=== PATIENT | male | born 1935 | race Caucasian/White ===

== ENCOUNTER 2016-11-02 11:36 | Inpatient (IN) | payer MEDICARE ==
[~2016-11-02] VITALS: Ht 172.7 cm; Wt 95.3 kg
[2016-11-02] MEDS: CITALOPRAM 20 MG TABLET. PO SCH (09:00)
[~2016-11-02 11:36] MED LIST: CEPH-264 PO; CITA20TA5 PO; LAMO200T3 PO; METF100010 PO; WARF7.5T PO
[2016-11-02] MEDS ORDERED: IV NORMAL SALINE 1000ML BAG 1,000 ML IV ONE (13:30)
[2016-11-02 13:51] LABS: BILIRUBIN,URINE NEGATIVE (NEG); GLUCOSE,URINE NEGATIVE (NEG); NITRITE,URINE NEGATIVE (NEG); PH,URINE 5.5; PROTEIN,URINE 100 mg/dL (NEG-TRACE); UROBILINOGEN,URINE 0.2 mg/dL (0.2 mg/dL)
[2016-11-02 13:52] LABS: BASO # 0.1 x10^3/uL (0.0-0.2); BASO % 1 % (0-3); EOS % 4 % (0-3); HEMATOCRIT 39.6 % (39.0-53.0); HEMOGLOBIN 13.3 g/dL (13.0-17.5); LYMPH # 1.1 x10^3/uL (1.0-4.8); LYMPH % 18 % (24-48); MEAN CORPUSCULAR HEMOGLOBIN 32 pg (25-35); MEAN CORPUSCULAR HGB CONC 34 g/dL (31-37); MEAN CORPUSCULAR VOLUME 96 fL (79-100); MONO % 11 % (0-9); NEUT % 66 % (31-73); PLATELET COUNT 174 x10^3/uL (140-400); RED BLOOD COUNT 4.13 x10^6/uL (4.30-5.70); RED CELL DISTRIBUTION WIDTH 15.8 % (11.5-14.5); WHITE BLOOD COUNT 6.1 x10^3/uL (4.0-11.0)
[2016-11-02 14:00] LABS: BACTERIA,URINE FEW /HPF (0-FEW); SQUAMOUS EPITHELIAL CELL,UR FEW /LPF; WBC,URINE 20-40 /HPF (0-4)
[2016-11-02 14:01] LABS: INR 1.6 (0.8-1.1); PROTHROMBIN TIME PATIENT 18.1 SEC (11.7-14.0)
[2016-11-02 14:02] LABS: CALCIUM 9.9 mg/dL (8.5-10.1); CREATININE 1.3 mg/dL (0.7-1.3); GFR 53.3; POTASSIUM 4.6 mmol/L (3.5-5.1)
[2016-11-02 14:08] LABS: ALBUMIN 3.5 g/dL (3.4-5.0); ALBUMIN/GLOBULIN RATIO 1.1 (1.0-1.7); TOTAL BILIRUBIN 0.7 mg/dL (0.2-1.0); TOTAL PROTEIN 6.8 g/dL (6.4-8.2)
[2016-11-02] MEDS ORDERED: ACETAMINOPHEN 325 MG TABLET. PO PRN (14:45)
[2016-11-02] MEDS ORDERED: DEXTROSE 50% 25 GM / 50ML DISP.SYRIN. IV PRN (14:45)
[2016-11-02] MEDS ORDERED: ONDANSETRON PF 4 MG/2 ML VIAL. IV PRN (14:45)
--- NOTE | 2016-11-02 14:53 | PHYS DOC ---
Past Medical History Past Medical History: CAD, Cancer, Depression, Diabetes-Type I, Diabetes-Type II, High Cholesterol, Heart Disease, Kidney Stone, Stroke Additional Past Medical Histor: retinopathy,BPH, CATARACTS PERIPHERAL VASCULAR DISEASE Past Surgical History: Coronary Bypass Surgery, Tonsillectomy, Other Additional Past Surgical Histo: aortic anuerysm, cardiac ablation, PROSTATE/ BLADDER SX, CARDIAC CATH Alcohol Use: None Drug Use: None Adult General Chief Complaint Chief Complaint: OTHER COMPLAINTS HPI HPI 81-year-old male with multiple medical problems presents with urinary frequency and progressive generalized weakness. Family states he's been unable to perform activities of daily living and family is unable to care for him at home. He was prescribed an antibiotic for a recently diagnosed urinary tract infection which she did not take because he was concerned about this affecting his Coumadin dose. He has not had any fever chills or sweats. No nausea or vomiting. He has had gross hematuria in the past however this has not been a problem over the last few days. [] Review of Systems Review of Systems Constitutional: Denies fever or chills [] Eyes: Denies change in visual acuity, redness, or eye pain [] HENT: Denies nasal congestion or sore throat [] Respiratory: Denies cough or shortness of breath [] Cardiovascular: No additional information not addressed in HPI [] GI: Denies abdominal pain, nausea, vomiting, bloody stools or diarrhea [] : Denies dysuria or hematuria [] Musculoskeletal: Denies back pain or joint pain [] Integument: Denies rash or skin lesions [] Neurologic: Denies headache, focal weakness or sensory changes [] Endocrine: Denies polyuria or polydipsia [] Current Medications Current Medications Current Medications Medications (Trade) Dose Ordered Sig/Carlos Enrique Start Time Stop Time Status Last Admin Dose Admin Acetaminophen (Tylenol) 650 mg PRN Q4HRS PRN 11/02/16 14:45 11/03/16 14:44 UNV Dextrose 12.5 gm PRN Q15MIN PRN 11/02/16 14:45 UNV Insulin Aspart (Novolog) 0-5 UNITS TIDWMEALS 11/02/16 17:00 UNV Levofloxacin/ Dextrose (LEVAQUIN 500mg PREMIX) 100 ml @ 100 mls/hr 1X ONCE 11/02/16 13:30 11/02/16 14:29 DC 11/02/16 13:44 100 MLS/HR Ondansetron HCl 4 mg 4 mg PRN Q8HRS PRN 11/02/16 14:45 11/03/16 14:44 UNV Sodium Chloride (Iv Sodium Chloride 0.9% 1000ml Bag) 1,000 ml @ 125 mls/hr Q8H 11/02/16 14:37 11/03/16 14:36 UNV Allergies Allergies Allergies Coded Allergies Type Severity Reaction Last Updated Verified No Known Drug Allergies 09/22/16 No Physical Exam Physical Exam Constitutional: Well developed, well nourished, no acute distress, non-toxic appearance. [] HENT: Normocephalic, atraumatic, bilateral external ears normal, oropharynx moist, no oral exudates, nose normal. [] Eyes: PERRLA, EOMI, conjunctiva normal, no discharge. [] Neck: Normal range of motion, no tenderness, supple, no stridor. [] Cardiovascular:Heart rate regular rhythm, no murmur [] Lungs & Thorax: Bilateral breath sounds clear to auscultation [] Abdomen: Bowel sounds normal, soft, no tenderness, no masses, no pulsatile masses. [] Skin: Warm, dry, no erythema, no rash. [] Back: No tenderness, no CVA tenderness. [] Extremities: No tenderness, no cyanosis, no clubbing, ROM intact, no edema. [] Neurologic: Alert and oriented X 3, normal motor function, normal sensory function, no focal deficits noted. [] Psychologic: Affect normal, judgement normal, mood normal. [] Current Patient Data Vital Signs Vital Signs Date Time Temp Pulse Resp B/P Pulse Ox O2 Delivery O2 Flow Rate FiO2 11/02/16 13:36 66 20 131/61 92 Room Air 11/02/16 13:20 98.0 98.0 Lab Values Laboratory Tests Test 11/02/16 13:05 11/02/16 13:40 Urine Collection Type Unknown Urine Color Yellow Urine Clarity Clear Urine pH 5.5 Urine Specific [place] 1.025 Urine Protein 100mg/dL (NEG-TRACE) Urine Glucose (UA) Negativemg/dL (NEG) Urine Ketones (Stick) Negativemg/dL (NEG) Urine Blood Negative (NEG) Urine Nitrite Negative (NEG) Urine Bilirubin Negative (NEG) Urine Urobilinogen Dipstick 0.2mg/dL (0.2 mg/dL) Urine Leukocyte Esterase Moderate (NEG) Urine RBC 1-2/HPF (0-2) Urine WBC 20-40/HPF (0-4) Urine Squamous Epithelial Cells Few/LPF Urine Bacteria Few/HPF (0-FEW) Urine Mucus Mod/LPF White Blood Count 6.1x10^3/uL (4.0-11.0) Red Blood Count 4.13x10^6/uL (4.30-5.70) L Hemoglobin 13.3g/dL (13.0-17.5) Hematocrit 39.6% (39.0-53.0) Mean Corpuscular Volume 96fL (79-100) Mean Corpuscular Hemoglobin 32pg (25-35) Mean Corpuscular Hemoglobin Concent 34g/dL (31-37) Red Cell Distribution Width 15.8% (11.5-14.5) H Platelet Count 174x10^3/uL (140-400) Neutrophils (%) (Auto) 66% (31-73) Lymphocytes (%) (Auto) 18% (24-48) L Monocytes (%) (Auto) 11% (0-9) H Eosinophils (%) (Auto) 4% (0-3) H Basophils (%) (Auto) 1% (0-3) Neutrophils # (Auto) 4.0x10^3uL (1.8-7.7) Lymphocytes # (Auto) 1.1x10^3/uL (1.0-4.8) Monocytes # (Auto) 0.7x10^3/uL (0.0-1.1) Eosinophils # (Auto) 0.2x10^3/uL (0.0-0.7) Basophils # (Auto) 0.1x10^3/uL (0.0-0.2) Prothrombin Time 18.1SEC (11.7-14.0) H Prothrombin Time INR 1.6 (0.8-1.1) H Sodium Level 138mmol/L (136-145) Potassium Level 4.6mmol/L (3.5-5.1) Chloride Level 102mmol/L (98-107) Carbon Dioxide Level 24mmol/L (21-32) Anion Gap 12 (6-14) Blood Urea Nitrogen 31mg/dL (8-26) H Creatinine 1.3mg/dL (0.7-1.3) Estimated GFR (Cockcroft-Gault) 53.3 BUN/Creatinine Ratio 24 (6-20) H Glucose Level 230mg/dL (70-99) H Calcium Level 9.9mg/dL (8.5-10.1) Total Bilirubin 0.7mg/dL (0.2-1.0) Aspartate Amino Transferase (AST) 10U/L (15-37) L Alanine Aminotransferase (ALT) 7U/L (16-63) L Alkaline Phosphatase 73U/L (46-116) Total Protein 6.8g/dL (6.4-8.2) Albumin 3.5g/dL (3.4-5.0) Albumin/Globulin Ratio 1.1 (1.0-1.7) Laboratory Tests 11/02/16 13:40 Laboratory Tests 11/02/16 13:40 EKG EKG [] Radiology/Procedures Radiology/Procedures [] Course & Med Decision Making Course & Med Decision Making Pertinent Labs and Imaging studies reviewed. (See chart for details) [ED course: Evaluation reveals an elderly male in no distress. He did have a little suprapubic tenderness on exam. Long discussion with his daughter was clear that she was unable to care for him at home. I spoke with Dr. garcia who agreed to accept the patient for admission.] Dragon Disclaimer Dragon Disclaimer This electronic medical record was generated, in whole or in part, using a voice recognition dictation system. Departure Departure Impression: Primary Impression: UTI (urinary tract infection) Disposition: 09 ADMITTED INPATIENT Admitting Physician: Kristan Garcia Condition: STABLE Referrals: ROSA ELENA MILLARD MD (PCP) Problem Qualifiers Primary Impression: UTI (urinary tract infection) Urinary tract infection type: acute cystitis Hematuria presence: with hematuria Qualified Code: N30.01 - Acute cystitis with hematuria KOLE ANDREWS DO Nov 02, 2016 14:53
[2016-11-02] MEDS: IV NORMAL SALINE 1000ML BAG 1,000 ML IV SCH ×2 (15:01→23:03)
--- NOTE | 2016-11-02 16:52 | ACF ---
Admission Forms Criteria URINARY COMPLICATIONS Clinical Indications for Inpatient Care (Place 'X' for any and all applicable criteria): Ongoing inpatient care may be indicated for urinary complications with ANY ONE of the following: [X]I. Urinary tract infection requiring inpatient care as indicated by ANY ONE of the following(8)(19)(20): [ ]a) Severe symptoms (eg, high fever, severe pain) [ ]b) Vomiting or dehydration requiring ongoing inpatient care [X]c) IV antibiotic needs that cannot be managed at lower level of care [ ]d) Hemodynamic instability [ ]e) Obstruction of collecting system by stone or tumor [ ]II. Urinary retention requiring drainage or surgery (3)(4)(5)(17)(18) [ ]III. Renal failure (Use Renal Failure Criteria for further information.) [ ]IV. Oliguria(30) [ ]V. Post obstructive diuresis requiring close monitoring of urine output and intravenous compensation for excessive fluid losses(33) Extended stay beyond goal length of stay for primary condition may be needed until ALL of the following are present(3)(4)(5)(8): [ ]a) Renal function (creatinine) at baseline, or daily decreases in creatinine consistent with renal function return [ ]b) Voiding adequately or with urinary catheter or percutaneous suprapubic tube and management regimen in place that is performable at lower level of care. [ ]c) Urine output adequate [ ]d) Fever absent or resolving [ ]e) Infection absent or treatable at next level of care The original [employer]) content created by [employer] has been revised. The portions of the content which have been revised are identified through the use of italic text or in bold, and [facility] has neither reviewed nor approved the modified material. All other unmodified content is copyright [email or web address] Please see references footnoted in the original [email or web address] edition 2016 Admission Criteria Met?: Yes NILAM WEEMS Nov 02, 2016 16:52
[2016-11-02] MEDS: INSULIN ASPART 300 UNITS/3 ML INSULN.PEN SQ SCH (17:00)
--- NOTE | 2016-11-02 17:35 | PDOC1 ---
History and Physical Date of Admission Date of Admission DATE: 11/02/16 TIME: 17:33 Identification/Chief Complaint Chief Complaint weakness Source Source: Chart review, Patient History of Present Illness History of Present Illness Mr. Kendall, is 81-year-old male, he reports "just visiting" from [place]. admit with urinary frequency and progressive generalized weakness. He has mult prior berrios, prior tumor removed from bladder 2013, recent berrios removal at [facility] one week ago, now, he presents weak, with increased urinary freq, going about every 20 min, he reports Family states he's been unable to perform activities of daily living and family is unable to care for him at home. PER ER "recently diagnosed urinary tract infection which she did not take because he was concerned about this affecting his Coumadin dose" Past Medical History Cardiovascular: CAD, CHF, HTN Heme/Onc: Cancer Musculoskeletal: low back pain Past Surgical History Past Surgical History: CABG (X2., '87 and '05) Family History Family History: No Significant Social History Smoke: No ALCOHOL: none Current Problem List Problem List Problems Medical Problems: (1) UTI (urinary tract infection) Status: Acute Problems: Current Medications Current Medications Current Medications Sodium Chloride 1,000 ml @ 1,000 mls/hr 1X ONCE IV Last administered on 13:43; Start 11/02/16 at 13:30; Stop 11/02/16 at 14:29; Status DC Levofloxacin/ Dextrose (LEVAQUIN 500mg PREMIX) 100 ml @ 100 mls/hr 1X ONCE IV Last administered on 11/02/16 13:44; Start 11/02/16 at 13:30; Stop 11/02/16 at 14:29; Status DC Ondansetron HCl 4 mg 4 mg PRN Q8HRS PRN IV NAUSEA/VOMITING; Start 11/02/16 at 14:45; Stop 11/03/16 at 14:44 Sodium Chloride (Iv Sodium Chloride 0.9% 1000ml Bag) 1,000 ml @ 125 mls/hr Q8H IV Last administered on 11/02/16 15:01; Start 11/02/16 at 14:37; Stop at 14:36 Acetaminophen (Tylenol) 650 mg PRN Q4HRS PRN PO FEVER; Start 11/02/16 at 14:45 ; Stop 11/03/16 at 14:44 Insulin Aspart (Novolog) 0-5 UNITS TIDWMEALS SQ ; Start 11/02/16 at 17:00 Dextrose 12.5 gm PRN Q15MIN PRN IV SEE COMMENTS; Start 11/02/16 at 14:45 Citalopram Hydrobromide (Celexa) 20 mg DAILY PO ; Start 11/03/16 at 09:00; Status UNV Warfarin Sodium (Coumadin) 7.5 mg DAILY PO ; Start 11/03/16 at 09:00; Status UNV Non-Formulary Medication 200 mg DAILY PO ; Start 11/03/16 at 09:00; Status UNV Non-Formulary Medication 1000 mg 1,000 mg BID PO ; Start 11/02/16 at 21:00; Status UNV Ceftriaxone Sodium/Sodium Chloride (Rocephin/Iv Sodium Chloride 0.9% 50ml) 50 ml @ 100 mls/hr Q24H IV ; Start 11/02/16 at 17:30; Status UNV Active Scripts Active Keflex (Cephalexin) 500 Mg Capsule 1 Cap PO BID Reported Coumadin (Warfarin Sodium) 7.5 Mg Tablet 7.5 Mg PO DAILY Lamictal (Lamotrigine) 200 Mg Tablet 200 Mg PO DAILY Citalopram Hbr (Citalopram Hydrobromide) 20 Mg Tablet 20 Mg PO DAILY Metformin Hcl Er (Metformin Hcl) 1,000 Mg Tab.er.24 1,000 Mg PO BID Allergies Allergies: Coded Allergies: No Known Drug Allergies (Unverified , 09/22/16) ROS General: YES: Appetite, Fatigue, Malaise, No: Chills, Night Sweats, Other PSYCHOLOGICAL ROS: No: Anxiety, Behavioral Disorder, Concentration difficultie , Decreased libido, Depression, Disorientation, Hallucinations, Hostility, Irritablity, Memory difficulties, Mood Swings, Obsessive thoughts, Other, Physical abuse, Sexual abuse, Sleep disturbances, Suicidal ideation Eyes: No Blurry vision, No Decreased vision, No Double vision, No Dry eyes, No Excessive tearing, No Eye Pain, No Itchy Eyes, No Loss of vision, No Other, No Photophobia, No Scotomata, No Uses contacts, No Uses glasses HEENT: No: Epistaxis, Heacaches, Hearing change, Nasal congestion, Nasal discharge, Oral lesions, Other, Sinus pain, Sneezing, Snoring, Sore Throat, Tinnitus, Vertigo, Visual Changes, Vocal changes Hematological and Lymphatic: No: Bleeding Problems, Blood Clots, Blood Transfusions, Brusing, Night Sweats, Other, Pallor, Swollen Lymph Nodes ENDOCRINE: YES: Malaise/lethargy, No: Galactorrhea, Hair Pattern Changes, Hot Flashes, Mood Swings, Other, Palpitations, Polydipsia/polyuria, Skin Changes, Temperature Intolerance, Unexpected Weight Changes Respiratory: No: Cough, Hemoptysis, Orthopnea, Other, Pleuritic Pain, SOB with excertion, Shortness of breath, Sputum Changes, Stridor, Tachypnea, Wheezing Cardiovascular: No Chest Pain, No Edema, No Lt Headedness, No Orthopnea, No Other, No Palpitations, No Paroxysmal Noc. Dyspnea Gastrointestinal: No Abdominal Pain, No Constipation, No Diarrhea, No Hematochezia, No Melena, No Nausea, No Other, No Vomiting Genitourinary: YES Frequency, YES Urgency, No , No , No , No , No , No , No , No Discharge, No Flank Pain, No Hematuria , No Incontinence, No Other, No Pain, No Retention Musculoskeletal: Yes Joint Pain, Yes Joint Stiffness, No Gait Disturbance, No Joint Swelling, No Muscle Pain, No Muscular Weakness , No Other, No Pain In:, No Swelling In: Neurological: Yes Gait Disturbance, No Behavorial Changes, No Bowel/Bladder ControlChng, No Confusion, No Dizziness, No Headaches, No Impaired Coord/balance, No Memory Loss, No Numbness/ Tingling, No Other, No Seizures, No Speech Problems, No Tremors, No Visual Changes, No Weakness Skin: Yes Dry Skin, No Acne, No Eczema, No Hair Changes, No Lumps, No Mole Changes, No Mottling, No Nail Changes, No Other, No Pruritus, No Rash, No Skin Lesion Changes Physical Exam General: Alert, Oriented X3 HEENT: Atraumatic, PERRLA Lungs: Normal air movement Heart: no murmurs Abdomen: Normal bowel sounds Extremities: No clubbing, No cyanosis Skin: No rashes, No breakdown Neuro: Normal gait, Normal speech, Normal tone, Sensation intact Psych/Mental Status: Mood NL Vitals Vitals Vital Signs Date Time Temp Pulse Resp B/P Pulse Ox O2 Delivery O2 Flow Rate FiO2 11/02/16 16:36 75 20 132/87 92 Room Air 11/02/16 13:20 98.0 98.0 Labs Labs Laboratory Tests Test 11/02/16 13:05 11/02/16 13:40 Urine Collection Type Unknown Urine Color Yellow Urine Clarity Clear Urine pH 5.5 Urine Specific [place] 1.025 Urine Protein 100mg/dL (NEG-TRACE) Urine Glucose (UA) Negativemg/dL (NEG) Urine Ketones (Stick) Negativemg/dL (NEG) Urine Blood Negative (NEG) Urine Nitrite Negative (NEG) Urine Bilirubin Negative (NEG) Urine Urobilinogen Dipstick 0.2mg/dL (0.2 mg/dL) Urine Leukocyte Esterase Moderate (NEG) Urine RBC 1-2/HPF (0-2) Urine WBC 20-40/HPF (0-4) Urine Squamous Epithelial Cells Few/LPF Urine Bacteria Few/HPF (0-FEW) Urine Mucus Mod/LPF White Blood Count 6.1x10^3/uL (4.0-11.0) Red Blood Count 4.13x10^6/uL (4.30-5.70) Hemoglobin 13.3g/dL (13.0-17.5) Hematocrit 39.6% (39.0-53.0) Mean Corpuscular Volume 96fL (79-100) Mean Corpuscular Hemoglobin 32pg (25-35) Mean Corpuscular Hemoglobin Concent 34g/dL (31-37) Red Cell Distribution Width 15.8% (11.5-14.5) Platelet Count 174x10^3/uL (140-400) Neutrophils (%) (Auto) 66% (31-73) Lymphocytes (%) (Auto) 18% (24-48) Monocytes (%) (Auto) 11% (0-9) Eosinophils (%) (Auto) 4% (0-3) Basophils (%) (Auto) 1% (0-3) Neutrophils # (Auto) 4.0x10^3uL (1.8-7.7) Lymphocytes # (Auto) 1.1x10^3/uL (1.0-4.8) Monocytes # (Auto) 0.7x10^3/uL (0.0-1.1) Eosinophils # (Auto) 0.2x10^3/uL (0.0-0.7) Basophils # (Auto) 0.1x10^3/uL (0.0-0.2) Prothrombin Time 18.1SEC (11.7-14.0) Prothromb Time International Ratio 1.6 (0.8-1.1) Sodium Level 138mmol/L (136-145) Potassium Level 4.6mmol/L (3.5-5.1) Chloride Level 102mmol/L (98-107) Carbon Dioxide Level 24mmol/L (21-32) Anion Gap 12 (6-14) Blood Urea Nitrogen 31mg/dL (8-26) Creatinine 1.3mg/dL (0.7-1.3) Estimated GFR (Cockcroft-Gault) 53.3 BUN/Creatinine Ratio 24 (6-20) Glucose Level 230mg/dL (70-99) Calcium Level 9.9mg/dL (8.5-10.1) Total Bilirubin 0.7mg/dL (0.2-1.0) Aspartate Amino Transf (AST/SGOT) 10U/L (15-37) Alanine Aminotransferase (ALT/SGPT) 7U/L (16-63) Alkaline Phosphatase 73U/L (46-116) Total Protein 6.8g/dL (6.4-8.2) Albumin 3.5g/dL (3.4-5.0) Albumin/Globulin Ratio 1.1 (1.0-1.7) Laboratory Tests Test 11/02/16 13:05 11/02/16 13:40 Urine Collection Type Unknown Urine Color Yellow Urine Clarity Clear Urine pH 5.5 Urine Specific [place] 1.025 Urine Protein 100mg/dL (NEG-TRACE) Urine Glucose (UA) Negativemg/dL (NEG) Urine Ketones (Stick) Negativemg/dL (NEG) Urine Blood Negative (NEG) Urine Nitrite Negative (NEG) Urine Bilirubin Negative (NEG) Urine Urobilinogen Dipstick 0.2mg/dL (0.2 mg/dL) Urine Leukocyte Esterase Moderate (NEG) Urine RBC 1-2/HPF (0-2) Urine WBC 20-40/HPF (0-4) Urine Squamous Epithelial Cells Few/LPF Urine Bacteria Few/HPF (0-FEW) Urine Mucus Mod/LPF White Blood Count 6.1x10^3/uL (4.0-11.0) Red Blood Count 4.13x10^6/uL (4.30-5.70) Hemoglobin 13.3g/dL (13.0-17.5) Hematocrit 39.6% (39.0-53.0) Mean Corpuscular Volume 96fL (79-100) Mean Corpuscular Hemoglobin 32pg (25-35) Mean Corpuscular Hemoglobin Concent 34g/dL (31-37) Red Cell Distribution Width 15.8% (11.5-14.5) Platelet Count 174x10^3/uL (140-400) Neutrophils (%) (Auto) 66% (31-73) Lymphocytes (%) (Auto) 18% (24-48) Monocytes (%) (Auto) 11% (0-9) Eosinophils (%) (Auto) 4% (0-3) Basophils (%) (Auto) 1% (0-3) Neutrophils # (Auto) 4.0x10^3uL (1.8-7.7) Lymphocytes # (Auto) 1.1x10^3/uL (1.0-4.8) Monocytes # (Auto) 0.7x10^3/uL (0.0-1.1) Eosinophils # (Auto) 0.2x10^3/uL (0.0-0.7) Basophils # (Auto) 0.1x10^3/uL (0.0-0.2) Prothrombin Time 18.1SEC (11.7-14.0) Prothromb Time International Ratio 1.6 (0.8-1.1) Sodium Level 138mmol/L (136-145) Potassium Level 4.6mmol/L (3.5-5.1) Chloride Level 102mmol/L (98-107) Carbon Dioxide Level 24mmol/L (21-32) Anion Gap 12 (6-14) Blood Urea Nitrogen 31mg/dL (8-26) Creatinine 1.3mg/dL (0.7-1.3) Estimated GFR (Cockcroft-Gault) 53.3 BUN/Creatinine Ratio 24 (6-20) Glucose Level 230mg/dL (70-99) Calcium Level 9.9mg/dL (8.5-10.1) Total Bilirubin 0.7mg/dL (0.2-1.0) Aspartate Amino Transf (AST/SGOT) 10U/L (15-37) Alanine Aminotransferase (ALT/SGPT) 7U/L (16-63) Alkaline Phosphatase 73U/L (46-116) Total Protein 6.8g/dL (6.4-8.2) Albumin 3.5g/dL (3.4-5.0) Albumin/Globulin Ratio 1.1 (1.0-1.7) VTE Prophylaxis Ordered VTE Prophylaxis Devices: No VTE Pharmacological Prophylaxi: Yes Assessment/Plan Assessment/Plan UTI, complicated sepsis recent berrios prior bladder surgery, tumor removal CAD, s/p CABG x2 afib, coumadin, admit, ID consult levaquin given in ER, start rocephin weakness and debility, PT and OT, plan [facility] NINA SEVERINO MD Nov 02, 2016 17:35
[2016-11-02 18:10] VITALS: BP 132/87
[2016-11-02] MEDS: CEFTRIAXONE SODIUM 1 GM in IV NORMAL SALINE 50ML 50 ML IV SCH (18:46)
[2016-11-02] MEDS: lamoTRIgine 100 MG TABLET. PO SCH (18:47)
[2016-11-02] MEDS: METFORMIN 1,000 MG TABLET PO SCH (18:47)
[2016-11-02 19:07] VITALS: BP 144/76
[2016-11-02] MEDS: WARFARIN 7.5 MG TABLET. PO SCH (20:21)
[2016-11-02] MEDS: TAMSULOSIN 0.4 MG CAP.ER.24H. PO SCH (23:00)
[2016-11-02] MEDS: ENOXAPARIN 40 MG/0.4 ML DISP.SYRIN. SQ SCH (23:04)
[2016-11-02 23:22] VITALS: BP 138/66
[2016-11-03 03:15] VITALS: BP 140/72
[2016-11-03 04:21] LABS: BASO % 0 % (0-3); EOS % 5 % (0-3); HEMATOCRIT 37.9 % (39.0-53.0); HEMOGLOBIN 12.6 g/dL (13.0-17.5); LYMPH # 1.2 x10^3/uL (1.0-4.8); LYMPH % 23 % (24-48); MEAN CORPUSCULAR HEMOGLOBIN 32 pg (25-35); MEAN CORPUSCULAR HGB CONC 33 g/dL (31-37); MEAN CORPUSCULAR VOLUME 96 fL (79-100); MONO % 11 % (0-9); NEUT % 62 % (31-73); PLATELET COUNT 153 x10^3/uL (140-400); RED BLOOD COUNT 3.96 x10^6/uL (4.30-5.70); RED CELL DISTRIBUTION WIDTH 15.8 % (11.5-14.5); WHITE BLOOD COUNT 5.3 x10^3/uL (4.0-11.0)
[2016-11-03 04:35] LABS: CALCIUM 8.8 mg/dL (8.5-10.1); CREATININE 1.1 mg/dL (0.7-1.3); GFR 64.6; POTASSIUM 3.9 mmol/L (3.5-5.1)
[2016-11-03 04:44] LABS: INR 1.6 (0.8-1.1); PROTHROMBIN TIME PATIENT 18.1 SEC (11.7-14.0)
[2016-11-03 07:00] VITALS: BP 122/60
[2016-11-03] MEDS: INSULIN ASPART 300 UNITS/3 ML INSULN.PEN SQ SCH ×3 (07:53→17:23)
[2016-11-03] MEDS: CITALOPRAM 20 MG TABLET. PO SCH (08:10)
[2016-11-03] MEDS: METFORMIN 1,000 MG TABLET PO SCH ×2 (08:10→16:14)
[2016-11-03] MEDS: IV NORMAL SALINE 1000ML BAG 1,000 ML IV SCH (08:10)
[2016-11-03] MEDS: lamoTRIgine 100 MG TABLET. PO SCH (08:11)
--- NOTE | 2016-11-03 11:21 | PDOC ---
Infectious Disease Note Vital Sign Vital Signs Vital Signs Date Time Temp Pulse Resp B/P Pulse Ox O2 Delivery O2 Flow Rate FiO2 11/03/16 08:00 Room Air 11/03/16 07:00 98.1 72 20 122/60 94 98.1 Labs Lab Laboratory Tests Test 11/02/16 13:05 11/02/16 13:40 11/02/16 18:31 11/03/16 04:00 Urine Collection Type Unknown Urine Color Yellow Urine Clarity Clear Urine pH 5.5 Urine Specific [place] 1.025 Urine Protein 100mg/dL (NEG-TRACE) Urine Glucose (UA) Negativemg/dL (NEG) Urine Ketones (Stick) Negativemg/dL (NEG) Urine Blood Negative (NEG) Urine Nitrite Negative (NEG) Urine Bilirubin Negative (NEG) Urine Urobilinogen Dipstick 0.2mg/dL (0.2 mg/dL) Urine Leukocyte Esterase Moderate (NEG) Urine RBC 1-2/HPF (0-2) Urine WBC 20-40/HPF (0-4) Urine Squamous Epithelial Cells Few/LPF Urine Bacteria Few/HPF (0-FEW) Urine Mucus Mod/LPF White Blood Count 6.1x10^3/uL (4.0-11.0) 5.3x10^3/uL (4.0-11.0) Red Blood Count 4.13x10^6/uL (4.30-5.70) 3.96x10^6/uL (4.30-5.70) Hemoglobin 13.3g/dL (13.0-17.5) 12.6g/dL (13.0-17.5) Hematocrit 39.6% (39.0-53.0) 37.9% (39.0-53.0) Mean Corpuscular Volume 96fL (79-100) 96fL (79-100) Mean Corpuscular Hemoglobin 32pg (25-35) 32pg (25-35) Mean Corpuscular Hemoglobin Concent 34g/dL (31-37) 33g/dL (31-37) Red Cell Distribution Width 15.8% (11.5-14.5) 15.8% (11.5-14.5) Platelet Count 174x10^3/uL (140-400) 153x10^3/uL (140-400) Neutrophils (%) (Auto) 66% (31-73) 62% (31-73) Lymphocytes (%) (Auto) 18% (24-48) 23% (24-48) Monocytes (%) (Auto) 11% (0-9) 11% (0-9) Eosinophils (%) (Auto) 4% (0-3) 5% (0-3) Basophils (%) (Auto) 1% (0-3) 0% (0-3) Neutrophils # (Auto) 4.0x10^3uL (1.8-7.7) 3.3x10^3uL (1.8-7.7) Lymphocytes # (Auto) 1.1x10^3/uL (1.0-4.8) 1.2x10^3/uL (1.0-4.8) Monocytes # (Auto) 0.7x10^3/uL (0.0-1.1) 0.6x10^3/uL (0.0-1.1) Eosinophils # (Auto) 0.2x10^3/uL (0.0-0.7) 0.2x10^3/uL (0.0-0.7) Basophils # (Auto) 0.1x10^3/uL (0.0-0.2) 0.0x10^3/uL (0.0-0.2) Prothrombin Time 18.1SEC (11.7-14.0) 18.1SEC (11.7-14.0) Prothromb Time International Ratio 1.6 (0.8-1.1) 1.6 (0.8-1.1) Sodium Level 138mmol/L (136-145) 139mmol/L (136-145) Potassium Level 4.6mmol/L (3.5-5.1) 3.9mmol/L (3.5-5.1) Chloride Level 102mmol/L (98-107) 106mmol/L (98-107) Carbon Dioxide Level 24mmol/L (21-32) 26mmol/L (21-32) Anion Gap 12 (6-14) 7 (6-14) Blood Urea Nitrogen 31mg/dL (8-26) 23mg/dL (8-26) Creatinine 1.3mg/dL (0.7-1.3) 1.1mg/dL (0.7-1.3) Estimated GFR (Cockcroft-Gault) 53.3 64.6 BUN/Creatinine Ratio 24 (6-20) Glucose Level 230mg/dL (70-99) 151mg/dL (70-99) Calcium Level 9.9mg/dL (8.5-10.1) 8.8mg/dL (8.5-10.1) Total Bilirubin 0.7mg/dL (0.2-1.0) Aspartate Amino Transf (AST/SGOT) 10U/L (15-37) Alanine Aminotransferase (ALT/SGPT) 7U/L (16-63) Alkaline Phosphatase 73U/L (46-116) Total Protein 6.8g/dL (6.4-8.2) Albumin 3.5g/dL (3.4-5.0) Albumin/Globulin Ratio 1.1 (1.0-1.7) Glucose (Fingerstick) 172mg/dL (70-99) Test 11/03/16 07:19 11/03/16 10:58 Glucose (Fingerstick) 148mg/dL (70-99) 187mg/dL (70-99) Objective Assessment UTI CAD H/o bladder ca h/o prolonged cath Plan Plan of Care rocephine check post void residual COREY CUMMINGS MD Nov 03, 2016 11:21
[2016-11-03 11:28] VITALS: BP 124/61
--- NOTE | 2016-11-03 15:24 | PDOC ---
PROGRESS NOTES Chief Complaint Chief Complaint UTI, complicatedm - recent berrios sepsis prior bladder surgery, tumor removal CAD, s/p CABG x2 afib, coumadin, weakness and debility, PT and OT, plan SNU History of Present Illness History of Present Illness cont rocephin Vitals Vitals Vital Signs Date Time Temp Pulse Resp B/P Pulse Ox O2 Delivery O2 Flow Rate FiO2 11/03/16 11:28 97.9 70 20 124/61 95 Room Air 97.9 Physical Exam General: Alert, Oriented X3 Heart: Regular rate, No murmurs Lungs: Clear Abdomen: Normal bowel sounds Extremities: No clubbing, No cyanosis Skin: No rashes, No breakdown Labs LABS Laboratory Tests Test 11/02/16 18:31 11/03/16 04:00 11/03/16 07:19 11/03/16 10:58 Glucose (Fingerstick) 172mg/dL (70-99) 148mg/dL (70-99) 187mg/dL (70-99) White Blood Count 5.3x10^3/uL (4.0-11.0) Red Blood Count 3.96x10^6/uL (4.30-5.70) Hemoglobin 12.6g/dL (13.0-17.5) Hematocrit 37.9% (39.0-53.0) Mean Corpuscular Volume 96fL (79-100) Mean Corpuscular Hemoglobin 32pg (25-35) Mean Corpuscular Hemoglobin Concent 33g/dL (31-37) Red Cell Distribution Width 15.8% (11.5-14.5) Platelet Count 153x10^3/uL (140-400) Neutrophils (%) (Auto) 62% (31-73) Lymphocytes (%) (Auto) 23% (24-48) Monocytes (%) (Auto) 11% (0-9) Eosinophils (%) (Auto) 5% (0-3) Basophils (%) (Auto) 0% (0-3) Neutrophils # (Auto) 3.3x10^3uL (1.8-7.7) Lymphocytes # (Auto) 1.2x10^3/uL (1.0-4.8) Monocytes # (Auto) 0.6x10^3/uL (0.0-1.1) Eosinophils # (Auto) 0.2x10^3/uL (0.0-0.7) Basophils # (Auto) 0.0x10^3/uL (0.0-0.2) Prothrombin Time 18.1SEC (11.7-14.0) Prothromb Time International Ratio 1.6 (0.8-1.1) Sodium Level 139mmol/L (136-145) Potassium Level 3.9mmol/L (3.5-5.1) Chloride Level 106mmol/L (98-107) Carbon Dioxide Level 26mmol/L (21-32) Anion Gap 7 (6-14) Blood Urea Nitrogen 23mg/dL (8-26) Creatinine 1.1mg/dL (0.7-1.3) Estimated GFR (Cockcroft-Gault) 64.6 Glucose Level 151mg/dL (70-99) Calcium Level 8.8mg/dL (8.5-10.1) Review of Systems Review of Systems no n.v.d Assessment and Plan Assessmemt and Plan Problems Medical Problems: (1) UTI (urinary tract infection) Status: Acute Problems: Comment Review of Relevant I have reviewed the following items jatin (where applicable) has been applied. Labs Laboratory Tests Test 11/02/16 13:05 11/02/16 13:40 11/02/16 18:31 11/03/16 04:00 Urine Collection Type Unknown Urine Color Yellow Urine Clarity Clear Urine pH 5.5 Urine Specific [place] 1.025 Urine Protein 100mg/dL (NEG-TRACE) Urine Glucose (UA) Negativemg/dL (NEG) Urine Ketones (Stick) Negativemg/dL (NEG) Urine Blood Negative (NEG) Urine Nitrite Negative (NEG) Urine Bilirubin Negative (NEG) Urine Urobilinogen Dipstick 0.2mg/dL (0.2 mg/dL) Urine Leukocyte Esterase Moderate (NEG) Urine RBC 1-2/HPF (0-2) Urine WBC 20-40/HPF (0-4) Urine Squamous Epithelial Cells Few/LPF Urine Bacteria Few/HPF (0-FEW) Urine Mucus Mod/LPF White Blood Count 6.1x10^3/uL (4.0-11.0) 5.3x10^3/uL (4.0-11.0) Red Blood Count 4.13x10^6/uL (4.30-5.70) 3.96x10^6/uL (4.30-5.70) Hemoglobin 13.3g/dL (13.0-17.5) 12.6g/dL (13.0-17.5) Hematocrit 39.6% (39.0-53.0) 37.9% (39.0-53.0) Mean Corpuscular Volume 96fL (79-100) 96fL (79-100) Mean Corpuscular Hemoglobin 32pg (25-35) 32pg (25-35) Mean Corpuscular Hemoglobin Concent 34g/dL (31-37) 33g/dL (31-37) Red Cell Distribution Width 15.8% (11.5-14.5) 15.8% (11.5-14.5) Platelet Count 174x10^3/uL (140-400) 153x10^3/uL (140-400) Neutrophils (%) (Auto) 66% (31-73) 62% (31-73) Lymphocytes (%) (Auto) 18% (24-48) 23% (24-48) Monocytes (%) (Auto) 11% (0-9) 11% (0-9) Eosinophils (%) (Auto) 4% (0-3) 5% (0-3) Basophils (%) (Auto) 1% (0-3) 0% (0-3) Neutrophils # (Auto) 4.0x10^3uL (1.8-7.7) 3.3x10^3uL (1.8-7.7) Lymphocytes # (Auto) 1.1x10^3/uL (1.0-4.8) 1.2x10^3/uL (1.0-4.8) Monocytes # (Auto) 0.7x10^3/uL (0.0-1.1) 0.6x10^3/uL (0.0-1.1) Eosinophils # (Auto) 0.2x10^3/uL (0.0-0.7) 0.2x10^3/uL (0.0-0.7) Basophils # (Auto) 0.1x10^3/uL (0.0-0.2) 0.0x10^3/uL (0.0-0.2) Prothrombin Time 18.1SEC (11.7-14.0) 18.1SEC (11.7-14.0) Prothromb Time International Ratio 1.6 (0.8-1.1) 1.6 (0.8-1.1) Sodium Level 138mmol/L (136-145) 139mmol/L (136-145) Potassium Level 4.6mmol/L (3.5-5.1) 3.9mmol/L (3.5-5.1) Chloride Level 102mmol/L (98-107) 106mmol/L (98-107) Carbon Dioxide Level 24mmol/L (21-32) 26mmol/L (21-32) Anion Gap 12 (6-14) 7 (6-14) Blood Urea Nitrogen 31mg/dL (8-26) 23mg/dL (8-26) Creatinine 1.3mg/dL (0.7-1.3) 1.1mg/dL (0.7-1.3) Estimated GFR (Cockcroft-Gault) 53.3 64.6 BUN/Creatinine Ratio 24 (6-20) Glucose Level 230mg/dL (70-99) 151mg/dL (70-99) Calcium Level 9.9mg/dL (8.5-10.1) 8.8mg/dL (8.5-10.1) Total Bilirubin 0.7mg/dL (0.2-1.0) Aspartate Amino Transf (AST/SGOT) 10U/L (15-37) Alanine Aminotransferase (ALT/SGPT) 7U/L (16-63) Alkaline Phosphatase 73U/L (46-116) Total Protein 6.8g/dL (6.4-8.2) Albumin 3.5g/dL (3.4-5.0) Albumin/Globulin Ratio 1.1 (1.0-1.7) Glucose (Fingerstick) 172mg/dL (70-99) Test 11/03/16 07:19 11/03/16 10:58 Glucose (Fingerstick) 148mg/dL (70-99) 187mg/dL (70-99) Laboratory Tests Test 11/02/16 18:31 11/03/16 04:00 11/03/16 07:19 11/03/16 10:58 Glucose (Fingerstick) 172mg/dL (70-99) 148mg/dL (70-99) 187mg/dL (70-99) White Blood Count 5.3x10^3/uL (4.0-11.0) Red Blood Count 3.96x10^6/uL (4.30-5.70) Hemoglobin 12.6g/dL (13.0-17.5) Hematocrit 37.9% (39.0-53.0) Mean Corpuscular Volume 96fL (79-100) Mean Corpuscular Hemoglobin 32pg (25-35) Mean Corpuscular Hemoglobin Concent 33g/dL (31-37) Red Cell Distribution Width 15.8% (11.5-14.5) Platelet Count 153x10^3/uL (140-400) Neutrophils (%) (Auto) 62% (31-73) Lymphocytes (%) (Auto) 23% (24-48) Monocytes (%) (Auto) 11% (0-9) Eosinophils (%) (Auto) 5% (0-3) Basophils (%) (Auto) 0% (0-3) Neutrophils # (Auto) 3.3x10^3uL (1.8-7.7) Lymphocytes # (Auto) 1.2x10^3/uL (1.0-4.8) Monocytes # (Auto) 0.6x10^3/uL (0.0-1.1) Eosinophils # (Auto) 0.2x10^3/uL (0.0-0.7) Basophils # (Auto) 0.0x10^3/uL (0.0-0.2) Prothrombin Time 18.1SEC (11.7-14.0) Prothromb Time International Ratio 1.6 (0.8-1.1) Sodium Level 139mmol/L (136-145) Potassium Level 3.9mmol/L (3.5-5.1) Chloride Level 106mmol/L (98-107) Carbon Dioxide Level 26mmol/L (21-32) Anion Gap 7 (6-14) Blood Urea Nitrogen 23mg/dL (8-26) Creatinine 1.1mg/dL (0.7-1.3) Estimated GFR (Cockcroft-Gault) 64.6 Glucose Level 151mg/dL (70-99) Calcium Level 8.8mg/dL (8.5-10.1) Medications Current Medications Sodium Chloride 1,000 ml @ 1,000 mls/hr 1X ONCE IV Last administered on 13:43; Start 11/02/16 at 13:30; Stop 11/02/16 at 14:29; Status DC Levofloxacin/ Dextrose (LEVAQUIN 500mg PREMIX) 100 ml @ 100 mls/hr 1X ONCE IV Last administered on 11/02/16 13:44; Start 11/02/16 at 13:30; Stop 11/02/16 at 14:29; Status DC Ondansetron HCl 4 mg 4 mg PRN Q8HRS PRN IV NAUSEA/VOMITING; Start 11/02/16 at 14:45; Stop 11/03/16 at 14:44; Status DC Sodium Chloride (Iv Sodium Chloride 0.9% 1000ml Bag) 1,000 ml @ 125 mls/hr Q8H IV Last administered on 11/03/16 08:10; Start 11/02/16 at 14:37; Stop at 14:36; Status DC Acetaminophen (Tylenol) 650 mg PRN Q4HRS PRN PO FEVER; Start 11/02/16 at 14:45 ; Stop 11/03/16 at 14:44; Status DC Insulin Aspart (Novolog) 0-5 UNITS TIDWMEALS SQ Last administered on 11/03/16 13:01; Start 11/02/16 at 17:00 Dextrose 12.5 gm PRN Q15MIN PRN IV SEE COMMENTS; Start 11/02/16 at 14:45 Citalopram Hydrobromide (Celexa) 20 mg DAILY PO Last administered on 11/03/16 08:10; Start 11/02/16 at 09:00 Warfarin Sodium (Coumadin) 7.5 mg DAILY16 PO Last administered on 11/02/16 20: 21; Start 11/02/16 at 20:00 Lamotrigine (LaMICtal) 200 mg DAILY PO Last administered on 11/03/16 08:11; Start 11/02/16 at 18:00 Metformin HCl 1000 mg 1,000 mg BIDWMEALS PO Last administered on 11/03/16 08: 10; Start 11/02/16 at 18:00 Ceftriaxone Sodium/Sodium Chloride (Rocephin/Iv Sodium Chloride 0.9% 50ml) 50 ml @ 100 mls/hr Q24H IV Last administered on 11/02/16 18:46; Start 11/02/16 at 18:00 Enoxaparin Sodium (Lovenox Per Pharmacy Prophylaxis Dosing) 1 each PRN DAILY PRN MC SEE COMMENTS; Start 11/02/16 at 23:00 Tamsulosin HCl (Flomax) 0.4 mg QHS PO ; Start 11/02/16 at 23:00 Enoxaparin Sodium (Lovenox 40mg Syringe) 40 mg Q24H SQ Last administered on 23:04; Start 11/02/16 at 23:00 Active Scripts Active Keflex (Cephalexin) 500 Mg Capsule 1 Cap PO BID Reported Coumadin (Warfarin Sodium) 7.5 Mg Tablet 7.5 Mg PO DAILY Lamictal (Lamotrigine) 200 Mg Tablet 200 Mg PO DAILY Citalopram Hbr (Citalopram Hydrobromide) 20 Mg Tablet 20 Mg PO DAILY Metformin Hcl Er (Metformin Hcl) 1,000 Mg Tab.er.24 1,000 Mg PO BID Vitals/I & O Vital Sign - Last 24 Hours 11/02/16 11/02/16 11/02/16 11/02/16 15:36 16:36 18:10 18:10 Temp 98.0 98.0 Pulse 72 75 75 Resp 20 20 B/P 144/72 132/87 132/87 Pulse Ox 92 92 92 O2 Delivery Room Air Room Air Room Air 11/02/16 11/02/16 11/02/16 11/03/16 19:07 20:00 23:22 03:15 Temp 97.4 97.7 97.5 97.4 97.7 97.5 Pulse 79 70 78 Resp 18 16 16 B/P 144/76 138/66 140/72 Pulse Ox 94 95 93 O2 Delivery Room Air Room Air Room Air Room Air 11/03/16 11/03/16 11/03/16 07:00 08:00 11:28 Temp 98.1 97.9 98.1 97.9 Pulse 72 70 Resp 20 20 B/P 122/60 124/61 Pulse Ox 94 95 O2 Delivery Room Air Room Air Room Air Intake and Output 11/02/16 11/02/16 11/03/16 15:00 23:00 07:00 Intake Total 1100 ml 1050 ml 200 ml Output Total 1400 ml Balance 1100 ml 1050 ml -1200 ml NINA SEVERINO MD Nov 03, 2016 15:24
[2016-11-03 15:29] VITALS: BP 120/65
[2016-11-03] MEDS: WARFARIN 7.5 MG TABLET. PO SCH (16:14)
[2016-11-03] MEDS: CEFTRIAXONE SODIUM 1 GM in IV NORMAL SALINE 50ML 50 ML IV SCH (17:23)
[2016-11-03 19:25] VITALS: BP 145/79
[2016-11-03] MEDS: TAMSULOSIN 0.4 MG CAP.ER.24H. PO SCH (21:00)
[2016-11-03] MEDS: ENOXAPARIN 40 MG/0.4 ML DISP.SYRIN. SQ SCH (21:25)
[2016-11-03 23:51] VITALS: BP 127/71
[2016-11-04] VITALS (8 sets, daily range): BP systolic 107–146; BP diastolic 49–82
--- NOTE | 2016-11-04 04:01 | CONS ---
DATE OF CONSULTATION: 11/03/2016 REQUESTING PHYSICIAN: Dr. Kristan Harper. REASON FOR CONSULTATION: Recurrent UTI. HISTORY OF PRESENT ILLNESS: This is a 81-year-old gentleman with history of bladder cancer, who had a Ellis catheter after some sort of surgery for prostate and/or bladder in [place]. The patient had a Ellis catheter for long time. The patient then moved here as where the daughter is and then he had an admission to and eventually after the evaluation, which we do not have any records, but the Ellis catheter was removed. Four or 5 days ago, the patient was given a prescription from for antibiotics for UTI that he did not fill because pharmacy refused to fill because of the drug interaction with his Coumadin and evidently he did not call back to talk to them. He does not know what was the culture positive. The patient came in here because of weakness. In fact, he continues to have urinary frequency, but there is no burning, there is no pain with urination. The patient does not have any fever. Does not have any nausea, vomiting, or diarrhea. He says he feels fine. The patient has been admitted for UTI. The patient again has no other symptoms other than urinary frequency. His urinalysis in the ER showed 20-40 wbc's. Urine culture is pending. White count in the blood was normal. BUN and creatinine is normal. PAST MEDICAL HISTORY: Positive for bladder cancer, status post surgery and has had catheter for long time, which has been removed now. After removal, he continues to have urinary frequency. It is unclear whether it is prostate related or not. The patient also has coronary artery disease with coronary artery bypass grafting done ____ heart failure, hypertension. SOCIAL HISTORY: Negative for smoking, alcohol, illicit drug use. ALLERGIES: No known drug allergies. CURRENT MEDICATIONS: All reviewed. The patient is on Rocephin and appears to be one dose of Levaquin was given. REVIEW OF SYSTEMS: As per HPI. All other systems reviewed are negative. PHYSICAL EXAMINATION: GENERAL: Alert, oriented gentlemen, not in any distress. VITAL SIGNS: Stable, afebrile. HEENT: NAD except very poor dental hygiene. NECK: Supple, no JVP, no lymphadenopathy. LUNGS: Clear. HEART: S1, S2 regular. ABDOMEN: Benign. EXTREMITIES: No edema or cyanosis. SKIN: Unremarkable. NEUROLOGIC: The patient is neurologically intact. LABORATORY DATA: White count is normal. BUN and creatinine is normal. Urinalysis showed 20-40 wbc's. Urine culture is pending. IMPRESSION: 1. Urinary tract infection. 2. May have some prostatism. We will also check postvoid residual. 3. Prolonged catheter insertion, which has been removed. 4. Coronary artery disease. 5. Hypertension. RECOMMEND: Continue Rocephin. We will check culture, adjust and the patient should be able to discharge tomorrow. Thank you very much Dr. Harper for giving me opportunity to participate in this patient's care. COREY CUMMINGS MD DR: LEIGHANN/ama JOB#: [id number] / [id number]
[2016-11-04 05:06] LABS: BASO # 0.1 x10^3/uL (0.0-0.2); BASO % 1 % (0-3); EOS % 4 % (0-3); HEMATOCRIT 37.9 % (39.0-53.0); HEMOGLOBIN 12.5 g/dL (13.0-17.5); LYMPH # 1.2 x10^3/uL (1.0-4.8); LYMPH % 19 % (24-48); MEAN CORPUSCULAR HEMOGLOBIN 32 pg (25-35); MEAN CORPUSCULAR HGB CONC 33 g/dL (31-37); MEAN CORPUSCULAR VOLUME 96 fL (79-100); MONO % 10 % (0-9); NEUT % 67 % (31-73); PLATELET COUNT 152 x10^3/uL (140-400); RED BLOOD COUNT 3.95 x10^6/uL (4.30-5.70); RED CELL DISTRIBUTION WIDTH 16.1 % (11.5-14.5); WHITE BLOOD COUNT 6.2 x10^3/uL (4.0-11.0)
[2016-11-04 05:29] LABS: ALBUMIN 3.2 g/dL (3.4-5.0); CREATININE 1.1 mg/dL (0.7-1.3); GFR 64.6; POTASSIUM 4.4 mmol/L (3.5-5.1); TOTAL BILIRUBIN 0.4 mg/dL (0.2-1.0); TOTAL PROTEIN 6.4 g/dL (6.4-8.2)
[2016-11-04 05:52] LABS: INR 1.7 (0.8-1.1)
[2016-11-04] MEDS: CITALOPRAM 20 MG TABLET. PO SCH (08:56)
[2016-11-04] MEDS: lamoTRIgine 100 MG TABLET. PO SCH (08:57)
[2016-11-04] MEDS: METFORMIN 1,000 MG TABLET PO SCH ×2 (08:57→17:42)
[2016-11-04] MEDS: INSULIN ASPART 300 UNITS/3 ML INSULN.PEN SQ SCH ×3 (09:04→17:00)
--- NOTE | 2016-11-04 10:33 | PDOC ---
Infectious Disease Note Subjective Subjective pt feeling good ROS ROS GEN: Denies fevers, chills, sweats HEENT: Denies blurred vision, sore throat CV: Denies chest pain RESP: Denies shortness of air, cough GI: Denies n/v/d NEURO: Denies confusion, dizziness MSK: Denies weakness, joint pain/swelling Vital Sign Vital Signs Vital Signs Date Time Temp Pulse Resp B/P Pulse Ox O2 Delivery O2 Flow Rate FiO2 11/04/16 08:00 Room Air 11/04/16 07:00 97.8 73 20 141/82 93 97.8 Physical Exam PHYSICAL EXAM GENERAL: NAD, Alert HEENT: PERRL, OC/OP NECK: Supple, no JVD, no LN LUNGS: Clear HEART: S1S2, no gallop, no murmur ABD: Soft, NT, no organomegaly, no rebound EXT: No edema, no cyanosis [employer]: Alert, oriented x 3, no focal neurologic deficit SKIN: No rash IV: ok Labs Lab Laboratory Tests Test 11/03/16 10:58 11/03/16 16:52 11/03/16 20:34 11/04/16 03:30 Glucose (Fingerstick) 187mg/dL (70-99) 177mg/dL (70-99) 164mg/dL (70-99) White Blood Count 6.2x10^3/uL (4.0-11.0) Red Blood Count 3.95x10^6/uL (4.30-5.70) Hemoglobin 12.5g/dL (13.0-17.5) Hematocrit 37.9% (39.0-53.0) Mean Corpuscular Volume 96fL (79-100) Mean Corpuscular Hemoglobin 32pg (25-35) Mean Corpuscular Hemoglobin Concent 33g/dL (31-37) Red Cell Distribution Width 16.1% (11.5-14.5) Platelet Count 152x10^3/uL (140-400) Neutrophils (%) (Auto) 67% (31-73) Lymphocytes (%) (Auto) 19% (24-48) Monocytes (%) (Auto) 10% (0-9) Eosinophils (%) (Auto) 4% (0-3) Basophils (%) (Auto) 1% (0-3) Neutrophils # (Auto) 4.1x10^3uL (1.8-7.7) Lymphocytes # (Auto) 1.2x10^3/uL (1.0-4.8) Monocytes # (Auto) 0.6x10^3/uL (0.0-1.1) Eosinophils # (Auto) 0.2x10^3/uL (0.0-0.7) Basophils # (Auto) 0.1x10^3/uL (0.0-0.2) Prothrombin Time 19.0SEC (11.7-14.0) Prothromb Time International Ratio 1.7 (0.8-1.1) Test 11/04/16 03:35 11/04/16 07:56 Sodium Level 141mmol/L (136-145) Potassium Level 4.4mmol/L (3.5-5.1) Chloride Level 106mmol/L (98-107) Carbon Dioxide Level 27mmol/L (21-32) Anion Gap 8 (6-14) Blood Urea Nitrogen 23mg/dL (8-26) Creatinine 1.1mg/dL (0.7-1.3) Estimated GFR (Cockcroft-Gault) 64.6 BUN/Creatinine Ratio 21 (6-20) Glucose Level 166mg/dL (70-99) Calcium Level 9.0mg/dL (8.5-10.1) Total Bilirubin 0.4mg/dL (0.2-1.0) Aspartate Amino Transf (AST/SGOT) 11U/L (15-37) Alanine Aminotransferase (ALT/SGPT) 15U/L (16-63) Alkaline Phosphatase 65U/L (46-116) Total Protein 6.4g/dL (6.4-8.2) Albumin 3.2g/dL (3.4-5.0) Albumin/Globulin Ratio 1.0 (1.0-1.7) Glucose (Fingerstick) 167mg/dL (70-99) Micro URINE CULTURE Preliminary Preliminary report URINE CULTURE RES 1 Preliminary Gram negative rods 25,000-50,000 colony forming units per mL URINE CULTURE RES 2 Preliminary Gram negative rods 25,000-50,000 colony forming units per mL Performed at: [address] [id number] [place]: Katia Powell MD, Phone: [phone] Objective Assessment UTI CAD H/o bladder ca h/o prolonged cath Plan Plan of Care rocephine check post void residual COREY CUMMINGS MD Nov 04, 2016 10:33
--- NOTE | 2016-11-04 15:54 | PDOC ---
PROGRESS NOTES Chief Complaint Chief Complaint UTI, complicated - sepsis prior bladder surgery, tumor removal CAD, s/p CABG x2 afib, coumadin, weakness and debility, PT and OT, plan SNU History of Present Illness History of Present Illness cont haris he wanted to go home today long discussion about his daughters concerns and benefits of SNU Vitals Vitals Vital Signs Date Time Temp Pulse Resp B/P Pulse Ox O2 Delivery O2 Flow Rate FiO2 11/04/16 15:00 98.2 74 20 141/70 94 Room Air 98.2 Physical Exam General: Alert, Oriented X3 Heart: Regular rate, No murmurs Lungs: Clear Abdomen: Normal bowel sounds Extremities: No clubbing, No cyanosis Skin: No rashes, No breakdown Labs LABS Laboratory Tests Test 11/03/16 16:52 11/03/16 20:34 11/04/16 03:30 11/04/16 03:35 Glucose (Fingerstick) 177mg/dL (70-99) 164mg/dL (70-99) White Blood Count 6.2x10^3/uL (4.0-11.0) Red Blood Count 3.95x10^6/uL (4.30-5.70) Hemoglobin 12.5g/dL (13.0-17.5) Hematocrit 37.9% (39.0-53.0) Mean Corpuscular Volume 96fL (79-100) Mean Corpuscular Hemoglobin 32pg (25-35) Mean Corpuscular Hemoglobin Concent 33g/dL (31-37) Red Cell Distribution Width 16.1% (11.5-14.5) Platelet Count 152x10^3/uL (140-400) Neutrophils (%) (Auto) 67% (31-73) Lymphocytes (%) (Auto) 19% (24-48) Monocytes (%) (Auto) 10% (0-9) Eosinophils (%) (Auto) 4% (0-3) Basophils (%) (Auto) 1% (0-3) Neutrophils # (Auto) 4.1x10^3uL (1.8-7.7) Lymphocytes # (Auto) 1.2x10^3/uL (1.0-4.8) Monocytes # (Auto) 0.6x10^3/uL (0.0-1.1) Eosinophils # (Auto) 0.2x10^3/uL (0.0-0.7) Basophils # (Auto) 0.1x10^3/uL (0.0-0.2) Prothrombin Time 19.0SEC (11.7-14.0) Prothromb Time International Ratio 1.7 (0.8-1.1) Sodium Level 141mmol/L (136-145) Potassium Level 4.4mmol/L (3.5-5.1) Chloride Level 106mmol/L (98-107) Carbon Dioxide Level 27mmol/L (21-32) Anion Gap 8 (6-14) Blood Urea Nitrogen 23mg/dL (8-26) Creatinine 1.1mg/dL (0.7-1.3) Estimated GFR (Cockcroft-Gault) 64.6 BUN/Creatinine Ratio 21 (6-20) Glucose Level 166mg/dL (70-99) Calcium Level 9.0mg/dL (8.5-10.1) Total Bilirubin 0.4mg/dL (0.2-1.0) Aspartate Amino Transf (AST/SGOT) 11U/L (15-37) Alanine Aminotransferase (ALT/SGPT) 15U/L (16-63) Alkaline Phosphatase 65U/L (46-116) Total Protein 6.4g/dL (6.4-8.2) Albumin 3.2g/dL (3.4-5.0) Albumin/Globulin Ratio 1.0 (1.0-1.7) Test 11/04/16 07:56 11/04/16 11:53 Glucose (Fingerstick) 167mg/dL (70-99) 204mg/dL (70-99) Review of Systems Review of Systems no n.v.d. feels well n Assessment and Plan Assessmemt and Plan plan to DC to healthcare resort tomorrow Problems Medical Problems: (1) UTI (urinary tract infection) Status: Acute Problems: Comment Review of Relevant I have reviewed the following items jatin (where applicable) has been applied. Labs Laboratory Tests Test 11/02/16 18:31 11/03/16 04:00 11/03/16 07:19 11/03/16 10:58 Glucose (Fingerstick) 172mg/dL (70-99) 148mg/dL (70-99) 187mg/dL (70-99) White Blood Count 5.3x10^3/uL (4.0-11.0) Red Blood Count 3.96x10^6/uL (4.30-5.70) Hemoglobin 12.6g/dL (13.0-17.5) Hematocrit 37.9% (39.0-53.0) Mean Corpuscular Volume 96fL (79-100) Mean Corpuscular Hemoglobin 32pg (25-35) Mean Corpuscular Hemoglobin Concent 33g/dL (31-37) Red Cell Distribution Width 15.8% (11.5-14.5) Platelet Count 153x10^3/uL (140-400) Neutrophils (%) (Auto) 62% (31-73) Lymphocytes (%) (Auto) 23% (24-48) Monocytes (%) (Auto) 11% (0-9) Eosinophils (%) (Auto) 5% (0-3) Basophils (%) (Auto) 0% (0-3) Neutrophils # (Auto) 3.3x10^3uL (1.8-7.7) Lymphocytes # (Auto) 1.2x10^3/uL (1.0-4.8) Monocytes # (Auto) 0.6x10^3/uL (0.0-1.1) Eosinophils # (Auto) 0.2x10^3/uL (0.0-0.7) Basophils # (Auto) 0.0x10^3/uL (0.0-0.2) Prothrombin Time 18.1SEC (11.7-14.0) Prothromb Time International Ratio 1.6 (0.8-1.1) Sodium Level 139mmol/L (136-145) Potassium Level 3.9mmol/L (3.5-5.1) Chloride Level 106mmol/L (98-107) Carbon Dioxide Level 26mmol/L (21-32) Anion Gap 7 (6-14) Blood Urea Nitrogen 23mg/dL (8-26) Creatinine 1.1mg/dL (0.7-1.3) Estimated GFR (Cockcroft-Gault) 64.6 Glucose Level 151mg/dL (70-99) Calcium Level 8.8mg/dL (8.5-10.1) Test 11/03/16 16:52 11/03/16 20:34 11/04/16 03:30 11/04/16 03:35 Glucose (Fingerstick) 177mg/dL (70-99) 164mg/dL (70-99) White Blood Count 6.2x10^3/uL (4.0-11.0) Red Blood Count 3.95x10^6/uL (4.30-5.70) Hemoglobin 12.5g/dL (13.0-17.5) Hematocrit 37.9% (39.0-53.0) Mean Corpuscular Volume 96fL (79-100) Mean Corpuscular Hemoglobin 32pg (25-35) Mean Corpuscular Hemoglobin Concent 33g/dL (31-37) Red Cell Distribution Width 16.1% (11.5-14.5) Platelet Count 152x10^3/uL (140-400) Neutrophils (%) (Auto) 67% (31-73) Lymphocytes (%) (Auto) 19% (24-48) Monocytes (%) (Auto) 10% (0-9) Eosinophils (%) (Auto) 4% (0-3) Basophils (%) (Auto) 1% (0-3) Neutrophils # (Auto) 4.1x10^3uL (1.8-7.7) Lymphocytes # (Auto) 1.2x10^3/uL (1.0-4.8) Monocytes # (Auto) 0.6x10^3/uL (0.0-1.1) Eosinophils # (Auto) 0.2x10^3/uL (0.0-0.7) Basophils # (Auto) 0.1x10^3/uL (0.0-0.2) Prothrombin Time 19.0SEC (11.7-14.0) Prothromb Time International Ratio 1.7 (0.8-1.1) Sodium Level 141mmol/L (136-145) Potassium Level 4.4mmol/L (3.5-5.1) Chloride Level 106mmol/L (98-107) Carbon Dioxide Level 27mmol/L (21-32) Anion Gap 8 (6-14) Blood Urea Nitrogen 23mg/dL (8-26) Creatinine 1.1mg/dL (0.7-1.3) Estimated GFR (Cockcroft-Gault) 64.6 BUN/Creatinine Ratio 21 (6-20) Glucose Level 166mg/dL (70-99) Calcium Level 9.0mg/dL (8.5-10.1) Total Bilirubin 0.4mg/dL (0.2-1.0) Aspartate Amino Transf (AST/SGOT) 11U/L (15-37) Alanine Aminotransferase (ALT/SGPT) 15U/L (16-63) Alkaline Phosphatase 65U/L (46-116) Total Protein 6.4g/dL (6.4-8.2) Albumin 3.2g/dL (3.4-5.0) Albumin/Globulin Ratio 1.0 (1.0-1.7) Test 11/04/16 07:56 11/04/16 11:53 Glucose (Fingerstick) 167mg/dL (70-99) 204mg/dL (70-99) Laboratory Tests Test 11/03/16 16:52 11/03/16 20:34 11/04/16 03:30 11/04/16 03:35 Glucose (Fingerstick) 177mg/dL (70-99) 164mg/dL (70-99) White Blood Count 6.2x10^3/uL (4.0-11.0) Red Blood Count 3.95x10^6/uL (4.30-5.70) Hemoglobin 12.5g/dL (13.0-17.5) Hematocrit 37.9% (39.0-53.0) Mean Corpuscular Volume 96fL (79-100) Mean Corpuscular Hemoglobin 32pg (25-35) Mean Corpuscular Hemoglobin Concent 33g/dL (31-37) Red Cell Distribution Width 16.1% (11.5-14.5) Platelet Count 152x10^3/uL (140-400) Neutrophils (%) (Auto) 67% (31-73) Lymphocytes (%) (Auto) 19% (24-48) Monocytes (%) (Auto) 10% (0-9) Eosinophils (%) (Auto) 4% (0-3) Basophils (%) (Auto) 1% (0-3) Neutrophils # (Auto) 4.1x10^3uL (1.8-7.7) Lymphocytes # (Auto) 1.2x10^3/uL (1.0-4.8) Monocytes # (Auto) 0.6x10^3/uL (0.0-1.1) Eosinophils # (Auto) 0.2x10^3/uL (0.0-0.7) Basophils # (Auto) 0.1x10^3/uL (0.0-0.2) Prothrombin Time 19.0SEC (11.7-14.0) Prothromb Time International Ratio 1.7 (0.8-1.1) Sodium Level 141mmol/L (136-145) Potassium Level 4.4mmol/L (3.5-5.1) Chloride Level 106mmol/L (98-107) Carbon Dioxide Level 27mmol/L (21-32) Anion Gap 8 (6-14) Blood Urea Nitrogen 23mg/dL (8-26) Creatinine 1.1mg/dL (0.7-1.3) Estimated GFR (Cockcroft-Gault) 64.6 BUN/Creatinine Ratio 21 (6-20) Glucose Level 166mg/dL (70-99) Calcium Level 9.0mg/dL (8.5-10.1) Total Bilirubin 0.4mg/dL (0.2-1.0) Aspartate Amino Transf (AST/SGOT) 11U/L (15-37) Alanine Aminotransferase (ALT/SGPT) 15U/L (16-63) Alkaline Phosphatase 65U/L (46-116) Total Protein 6.4g/dL (6.4-8.2) Albumin 3.2g/dL (3.4-5.0) Albumin/Globulin Ratio 1.0 (1.0-1.7) Test 11/04/16 07:56 11/04/16 11:53 Glucose (Fingerstick) 167mg/dL (70-99) 204mg/dL (70-99) Microbiology 11/02/16 Urine Culture - Final, Complete 11/02/16 Urine Culture Result 1 (ANA) - Final, Complete 11/02/16 Urine Culture Result 2 (ANA) - Final, Complete 11/02/16 Antimicrobic Susceptibility - Final, Complete Medications Current Medications Sodium Chloride 1,000 ml @ 1,000 mls/hr 1X ONCE IV Last administered on 13:43; Start 11/02/16 at 13:30; Stop 11/02/16 at 14:29; Status DC Levofloxacin/ Dextrose (LEVAQUIN 500mg PREMIX) 100 ml @ 100 mls/hr 1X ONCE IV Last administered on 11/02/16 13:44; Start 11/02/16 at 13:30; Stop 11/02/16 at 14:29; Status DC Ondansetron HCl 4 mg 4 mg PRN Q8HRS PRN IV NAUSEA/VOMITING; Start 11/02/16 at 14:45; Stop 11/03/16 at 14:44; Status DC Sodium Chloride (Iv Sodium Chloride 0.9% 1000ml Bag) 1,000 ml @ 125 mls/hr Q8H IV Last administered on 11/03/16 08:10; Start 11/02/16 at 14:37; Stop at 14:36; Status DC Acetaminophen (Tylenol) 650 mg PRN Q4HRS PRN PO FEVER; Start 11/02/16 at 14:45 ; Stop 11/03/16 at 14:44; Status DC Insulin Aspart (Novolog) 0-5 UNITS TIDWMEALS SQ Last administered on 11/04/16 12:21; Start 11/02/16 at 17:00 Dextrose 12.5 gm PRN Q15MIN PRN IV SEE COMMENTS; Start 11/02/16 at 14:45 Citalopram Hydrobromide (Celexa) 20 mg DAILY PO Last administered on 11/04/16 08:56; Start 11/02/16 at 09:00 Warfarin Sodium (Coumadin) 7.5 mg DAILY16 PO Last administered on 11/03/16 16: 14; Start 11/02/16 at 20:00 Lamotrigine (LaMICtal) 200 mg DAILY PO Last administered on 11/04/16 08:57; Start 11/02/16 at 18:00 Metformin HCl 1000 mg 1,000 mg BIDWMEALS PO Last administered on 11/04/16 08: 57; Start 11/02/16 at 18:00 Ceftriaxone Sodium/Sodium Chloride (Rocephin/Iv Sodium Chloride 0.9% 50ml) 50 ml @ 100 mls/hr Q24H IV Last administered on 11/03/16 17:23; Start 11/02/16 at 18:00 Enoxaparin Sodium (Lovenox Per Pharmacy Prophylaxis Dosing) 1 each PRN DAILY PRN MC SEE COMMENTS; Start 11/02/16 at 23:00 Tamsulosin HCl (Flomax) 0.4 mg QHS PO ; Start 11/02/16 at 23:00 Enoxaparin Sodium (Lovenox 40mg Syringe) 40 mg Q24H SQ Last administered on 23:04; Start 11/02/16 at 23:00 Warfarin Sodium (Coumadin Per Physician) 1 each PRN DAILY PRN MC SEE COMMENTS Last administered on 11/04/16 14:25; Start 11/03/16 at 15:30 Active Scripts Active Keflex (Cephalexin) 500 Mg Capsule 1 Cap PO BID Reported Coumadin (Warfarin Sodium) 7.5 Mg Tablet 7.5 Mg PO DAILY Lamictal (Lamotrigine) 200 Mg Tablet 200 Mg PO DAILY Citalopram Hbr (Citalopram Hydrobromide) 20 Mg Tablet 20 Mg PO DAILY Metformin Hcl Er (Metformin Hcl) 1,000 Mg Tab.er.24 1,000 Mg PO BID Vitals/I & O Vital Sign - Last 24 Hours 11/03/16 11/03/16 11/03/16 11/04/16 19:25 20:00 23:51 03:27 Temp 97.9 97.9 99.5 97.9 97.9 99.5 Pulse 83 81 75 Resp 16 16 16 B/P 145/79 127/71 128/49 Pulse Ox 95 93 95 O2 Delivery Room Air Room Air Room Air Room Air 11/04/16 11/04/16 11/04/16 11/04/16 07:00 08:00 11:00 15:00 Temp 97.8 98.2 98.2 97.8 98.2 98.2 Pulse 73 75 74 Resp 20 20 20 B/P 141/82 141/72 141/70 Pulse Ox 93 93 94 O2 Delivery Room Air Room Air Room Air Room Air Intake and Output 11/03/16 11/03/16 11/04/16 15:00 23:00 07:00 Intake Total 200 ml 1220 ml 100 ml Output Total 400 ml 300 ml 400 ml Balance -200 ml 920 ml -300 ml NINA SEVERINO MD Nov 04, 2016 15:54
[2016-11-04] MEDS: WARFARIN 7.5 MG TABLET. PO SCH (16:36)
[2016-11-04] MEDS: CEFTRIAXONE SODIUM 1 GM in IV NORMAL SALINE 50ML 50 ML IV SCH (18:10)
[2016-11-04] MEDS: TAMSULOSIN 0.4 MG CAP.ER.24H. PO SCH (21:00)
[2016-11-04] MEDS: ENOXAPARIN 40 MG/0.4 ML DISP.SYRIN. SQ SCH (21:15)
[2016-11-05 02:29] VITALS: BP 137/78
[2016-11-05 07:45] VITALS: BP 140/76
[2016-11-05] MEDS: INSULIN ASPART 300 UNITS/3 ML INSULN.PEN SQ SCH ×2 (08:00→12:07)
[2016-11-05] MEDS: CITALOPRAM 20 MG TABLET. PO SCH (08:11)
[2016-11-05] MEDS: METFORMIN 1,000 MG TABLET PO SCH (08:11)
[2016-11-05] MEDS: lamoTRIgine 100 MG TABLET. PO SCH (08:11)
--- NOTE | 2016-11-05 10:19 | PDOC ---
Infectious Disease Note Subjective Subjective Comfortable, denies pain Denies difficulty voiding ROS ROS GEN: Denies fevers, chills, sweats HEENT: Denies sore throat CV: Denies chest pain RESP: Denies shortness of air, cough GI: Denies n/v/d Vital Sign Vital Signs Vital Signs Date Time Temp Pulse Resp B/P Pulse Ox O2 Delivery O2 Flow Rate FiO2 11/05/16 07:45 97.7 77 18 140/76 92 Room Air 97.7 Physical Exam PHYSICAL EXAM GENERAL: NAD, Alert HEENT: PERRL, OC/OP NECK: Supple, no JVD, no LN LUNGS: Clear HEART: S1S2, no gallop, no murmur ABD: Soft, NT, no organomegaly, no rebound EXT: No edema, no cyanosis CRABBER: Alert, oriented x 3, no focal neurologic deficit SKIN: No rash IV: ok Labs Lab Laboratory Tests Test 11/04/16 11:53 11/04/16 16:47 11/04/16 21:12 11/05/16 08:03 Glucose (Fingerstick) 204mg/dL (70-99) 136mg/dL (70-99) 163mg/dL (70-99) 147mg/dL (70-99) Micro URINE CULTURE RES 1 Final Proteus mirabilis 25,000-50,000 colony forming units per mL URINE CULTURE RES 2 Final Pseudomonas aeruginosa 25,000-50,000 colony forming units per mL Antibiotic RSLT#1 RSLT#2 Amikacin S Amoxicillin/Clavulanic Acid S Ampicillin S Cefepime S S Ceftazidime S Ceftriaxone S Cefuroxime S Cephalothin S Ciprofloxacin S S Ertapenem S Gentamicin S S Imipenem S Levofloxacin S S Meropenem S Nitrofurantoin R Piperacillin S S Tetracycline R Ticarcillin S Tobramycin S S Trimethoprim/Sulfa S Objective Assessment UTI. Proteus and PSAE CAD H/o bladder ca h/o prolonged cath A-fib, on warfarin therapy. recent INR 1.7 Plan Plan of Care Redose Levoflox now prior to discharge To [facility] care resort today. Cipro prescribed by Primary for 10 days to start . INR q M/W/F D/w Mr Kendall risk of Cipro and coumadin Attending Co-Sign Attending Co-Sign The patient was seen and interviewed as well as examined at the bedside. The chart was reviewed. The case was discussed. Agree with the plan of care. DENIS GLASER APRN Nov 05, 2016 10:19 VAN LUNA MD Nov 05, 2016 13:55
[2016-11-05 11:59] VITALS: BP 131/76
[2016-11-05] MEDS ORDERED: TAMS0.4C97 PO (12:02)
[2016-11-05] MEDS ORDERED: CIPR500T94 PO (12:02)
--- NOTE | 2016-11-05 12:09 | PDOC3 ---
Discharge Summary Visit Information Date of Admission: Nov 02, 2016 Date of Discharge: Nov 05, 2016 Admitting Diagnosis: sepsis Final Diagnosis UTI, complicated - sepsis prior bladder surgery, tumor removal CAD, s/p CABG x2 afib, coumadin, weakness and debility, PT and OT, plan SNU he wanted to go home today long discussion about his daughter's concerns and benefits of SNU Problems Medical Problems: (1) Hematuria Status: Acute (2) UTI (urinary tract infection) Status: Acute Brief Hospital Course Allergies Allergies Coded Allergies Type Severity Reaction Last Updated Verified No Known Drug Allergies 09/22/16 No Vital Signs Vital Signs Date Time Temp Pulse Resp B/P Pulse Ox O2 Delivery O2 Flow Rate FiO2 11/05/16 11:59 97.4 79 18 131/76 94 Room Air 97.4 Lab Results Laboratory Tests Test 11/03/16 16:52 11/03/16 20:34 11/04/16 03:30 11/04/16 03:35 Glucose (Fingerstick) 177mg/dL (70-99) 164mg/dL (70-99) White Blood Count 6.2x10^3/uL (4.0-11.0) Red Blood Count 3.95x10^6/uL (4.30-5.70) Hemoglobin 12.5g/dL (13.0-17.5) Hematocrit 37.9% (39.0-53.0) Mean Corpuscular Volume 96fL (79-100) Mean Corpuscular Hemoglobin 32pg (25-35) Mean Corpuscular Hemoglobin Concent 33g/dL (31-37) Red Cell Distribution Width 16.1% (11.5-14.5) Platelet Count 152x10^3/uL (140-400) Neutrophils (%) (Auto) 67% (31-73) Lymphocytes (%) (Auto) 19% (24-48) Monocytes (%) (Auto) 10% (0-9) Eosinophils (%) (Auto) 4% (0-3) Basophils (%) (Auto) 1% (0-3) Neutrophils # (Auto) 4.1x10^3uL (1.8-7.7) Lymphocytes # (Auto) 1.2x10^3/uL (1.0-4.8) Monocytes # (Auto) 0.6x10^3/uL (0.0-1.1) Eosinophils # (Auto) 0.2x10^3/uL (0.0-0.7) Basophils # (Auto) 0.1x10^3/uL (0.0-0.2) Prothrombin Time 19.0SEC (11.7-14.0) Prothromb Time International Ratio 1.7 (0.8-1.1) Sodium Level 141mmol/L (136-145) Potassium Level 4.4mmol/L (3.5-5.1) Chloride Level 106mmol/L (98-107) Carbon Dioxide Level 27mmol/L (21-32) Anion Gap 8 (6-14) Blood Urea Nitrogen 23mg/dL (8-26) Creatinine 1.1mg/dL (0.7-1.3) Estimated GFR (Cockcroft-Gault) 64.6 BUN/Creatinine Ratio 21 (6-20) Glucose Level 166mg/dL (70-99) Calcium Level 9.0mg/dL (8.5-10.1) Total Bilirubin 0.4mg/dL (0.2-1.0) Aspartate Amino Transf (AST/SGOT) 11U/L (15-37) Alanine Aminotransferase (ALT/SGPT) 15U/L (16-63) Alkaline Phosphatase 65U/L (46-116) Total Protein 6.4g/dL (6.4-8.2) Albumin 3.2g/dL (3.4-5.0) Albumin/Globulin Ratio 1.0 (1.0-1.7) Test 11/04/16 07:56 11/04/16 11:53 11/04/16 16:47 11/04/16 21:12 Glucose (Fingerstick) 167mg/dL (70-99) 204mg/dL (70-99) 136mg/dL (70-99) 163mg/dL (70-99) Test 11/05/16 08:03 11/05/16 11:41 Glucose (Fingerstick) 147mg/dL (70-99) 189mg/dL (70-99) Laboratory Tests Test 11/04/16 16:47 11/04/16 21:12 11/05/16 08:03 11/05/16 11:41 Glucose (Fingerstick) 136mg/dL (70-99) 163mg/dL (70-99) 147mg/dL (70-99) 189mg/dL (70-99) Brief Hospital Course Mr. Kendall is a 81 old male admit with confusion and weaknes and UTI, levaquin X1, then rocephin daily better at 2 days, pans sens, bacteria x2 weakness and debility - difficult to care for at home, DC to skilled Discharge Information Condition at Discharge: Improved Follow Up: Weeks Disposition/Orders: D/C to Another Facility (resort) Scheduled Cephalexin (Keflex) 1 CAP PO BID Ciprofloxacin Hcl (Cipro) 1 TAB PO BID Citalopram Hydrobromide (Citalopram Hbr) 20 MG PO DAILY (Reported) Lamotrigine (Lamictal) 200 MG PO DAILY (Reported) Metformin Hcl (Metformin Hcl Er) 1,000 MG PO BID (Reported) Tamsulosin Hcl (Flomax) 0.4 MG PO QHS Warfarin Sodium (Coumadin) 7.5 MG PO DAILY (Reported) Patient Instructions Patient Instructions time > 30 min start flomax Cipro X10 days s/p 4 days rocephin URINE CULTURE RES 1 Final Proteus mirabilis 25,000-50,000 colony forming units per mL URINE CULTURE RES 2 Final Comment Pseudomonas aeruginosa 25,000-50,000 colony forming units per mL ANTIMICROBIAL SUSCEPTIBILITY Final Comment S = Susceptible; I = Intermediate; R = Resistant P = Positive; N = Negative MICS are expressed in micrograms per mL Antibiotic RSLT#1 RSLT#2 RSLT#3 RSLT#4 Amikacin S Amoxicillin/Clavulanic Acid S Ampicillin S Cefepime S S Ceftazidime S Ceftriaxone S Cefuroxime S Cephalothin S Ciprofloxacin S S Ertapenem S Gentamicin S S Imipenem S Levofloxacin S S Meropenem S Nitrofurantoin R Piperacillin S S Tetracycline R Ticarcillin S NINA SEVERINO MD Nov 05, 2016 12:09
[2016-11-05] MEDS ORDERED: LEVOFLOXACIN 500 MG TABLET PO ONE (14:00)
== END 2016-11-05 14:30 | DRG 698 ==
LOC: ER 11:36 → ED HOLD 14:34 → 6 SOUTH 17:16
PROVIDERS: ADMIT Internal Medicine; ATTEND Internal Medicine
DX: T83.518A Infection and inflammatory reaction due to other urinary catheter, initial encounter (principal); A41.9 Sepsis, unspecified organism; N39.0 Urinary tract infection, site not specified; E10.319 Type 1 diabetes mellitus with unspecified diabetic retinopathy without macular edema; E78.00 Pure hypercholesterolemia, unspecified; I25.10 Atherosclerotic heart disease of native coronary artery without angina pectoris; I48.91 Unspecified atrial fibrillation; I50.9 Heart failure, unspecified; I11.0 Hypertensive heart disease with heart failure; I73.9 Peripheral vascular disease, unspecified; F32.9 Major depressive disorder, single episode, unspecified; H26.9 Unspecified cataract; N40.0 Benign prostatic hyperplasia without lower urinary tract symptoms; R31.9 Hematuria, unspecified; Z79.01 Long term (current) use of anticoagulants; Z79.4 Long term (current) use of insulin; Z85.51 Personal history of malignant neoplasm of bladder; Z86.73 Personal history of transient ischemic attack (TIA), and cerebral infarction without residual deficits; Z87.440 Personal history of urinary (tract) infections; Z87.442 Personal history of urinary calculi; Z95.1 Presence of aortocoronary bypass graft
CPT/HCPCS: 36415; 80048; 80053; 81001; 82947; 85027; 85610; 87086; 87186; 96365; J0696; J1650; J1815; J1956; J7030; 99285-25